=== PATIENT | male | born 1980 | race African-American/Black ===

== ENCOUNTER 2020-04-12 00:30 | Emergency (ER) | payer OTHER ==
[~2020-04-12] VITALS: Ht 170.2 cm; Wt 61.2 kg
[2020-04-12 00:40] VITALS: BP 125/86
[2020-04-12] MEDS ORDERED: AUGMENTIN 875-1 EAC1 ORAL (00:54)
[2020-04-12] MEDS ORDERED: TRAMADOL HCL50 MG ORAL (00:54)
--- NOTE | 2020-04-12 00:58 | Emergency Room Report ---
History of Present Illness General Chief Complaint: Toothache Source: Patient Present Illness HPI Patient is a 39-year-old male presents to the ER complaining of tooth pain. Patient states that he grinds his teeth and cracked his molar 2 months ago and since then has been having nerve pain. He states that he cannot sleep because the pain. He states that he has had difficulty getting into a dentist due to the COVID-19 pandemic. He denies any intraoral swelling, fever or chills. Allergies: Coded Allergies: No Known Allergies (Unverified , 04/12/20) COVID-19 Screening Contact w/high risk pt: No Experienced COVID-19 symptoms?: No COVID-19 Testing performed WEL[employer]: No Patient History Reviewed Nursing Documentation: PMH: Agreed; PSxH: Agreed Nursing Documentation-PM Past Medical History: No Stated History Review of Systems All Other Systems: negative except mentioned in HPI Physical Exam Vital Signs Date Time Temp Pulse Resp B/P (MAP) Pulse Ox O2 Delivery O2 Flow Rate FiO2 04/12/20 00:40 97.9 58 16 125/86 (99) 98 Sp02 EP Interpretation: reviewed, normal General Appearance: no apparent distress, alert, GCS 15, non-toxic Head: normocephalic, atraumatic Eyes: bilateral eye normal inspection, bilateral eye PERRL ENT: normal pharynx, no angioedema, normal voice, moist mucus membranes, other - Cracked tooth #15 no surrounding erythema or swelling tenderness to palpation poor dentition otherwise Neck: full range of motion, supple/symm/no masses Respiratory: chest non-tender, lungs clear, normal breath sounds, speaking full sentences Cardiovascular #1: regular rate, rhythm, no edema Gastrointestinal: non tender, soft Rectal: deferred Genitourinary: no CVA tenderness Musculoskeletal: normal range of motion 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 I have explained that their evaluation and treatment in the emergency department today is an important step towards them achieving better health but that their evaluation today is not intended to replace further evaluation and treatment by a physician in their local clinic. I have explained that while the current findings suggest no immediate life threatening emergency they will require further evaluation and treatment by a physician of their choice in their area. They understand that it will be necessary for them to review the final reports of their ED visit with their clinic physician. We have reviewed indications for return to the Emergency Department. I have explained that additional time may need to pass and/or additional testing as an outpatient may be necessary before a definitive diagnosis can be made. They tell me they are willing to follow up as instructed within the timeframe I recommend. They appear to understand what we discussed. Additionally they understand that if they are unable to be seen by an outpatient physician they are welcome, and in fact should, return to the Emergency Department for a repeat evaluation. The patient is stable at time of discharge. Last Vital Signs Date Time Temp Pulse Resp B/P (MAP) Pulse Ox O2 Delivery O2 Flow Rate FiO2 04/12/20 00:40 97.9 58 16 125/86 (99) 98 Disposition: HOME, SELF-CARE Condition: Stable Scripts Tramadol Hcl* (ULTRAM*) 50 Mg Tablet 50 MG ORAL Q6H PRN for For Pain, #12 TAB 0 Refills Prov: Onelia Thakkar M.D. 04/12/20 Amoxicillin/Potassium Clav 875-125* (AUGMENTIN 875-125 TABLET*) 1 Each Tablet 1 TAB ORAL TWICE A DAY, #14 TAB Prov: Onelia Thakkar M.D. 04/12/20 Referrals: [facility](age 2-12) - Orthodontic Clinic - Hours: Wed,Wed,, 8:15am and 1pm (new patient screening), . 1pm. Emergency clinic Wednesday - Wednesday 8:30am and 1pm, Tu. 1pm. *Call to check if clinic is open; No appointment necessary for the first visit ( new patient screening), Arrive 15-30 minutes early as it is first come, first serve. [facility] - [facility] Location: 2nd Floor [address] [place] [address] INFO: Wed & Wed-8:30am-4:30pm, - 8:30am - 7pm, Thurs- Emergency only, Fri- 8:30am-11:30am and afternoon emergency only [facility] INFO: New Patient Screening: Wed- 8am-1pm Mon- 9am -5pm and Wed 2pm-5pm Patient Instructions: Dental Pain Additional Instructions: The patient was provided with discharge instructions, notified to follow-up with a primary care doctor and or specialist in the next 24-48 hours, and to return to the ED if they have worsening of their symptoms. Please note that this report is being documented using [employer] technology. This can lead to erroneous entry secondary to incorrect interpretation by the dictating instrument. Onelia Thakkar M.D. Apr 12, 2020 00:58
[2020-04-12] MEDS ORDERED: Augmentin 875mg Tab ORAL ONE (01:00)
[2020-04-12] MEDS ORDERED: traMADol 50mg tab ORAL ONE (01:00)
[2020-04-12 01:05] VITALS: BP 125/86
== END 2020-04-12 01:30 | disposition home or self-care (01) ==
LOC: EMR 01:10
DX: K08.89 Other specified disorders of teeth and supporting structures (principal)
CPT/HCPCS: 99282